=== PATIENT | male | born 1980 | race Caucasian/White ===

== ENCOUNTER 2019-11-23 00:56 | Emergency (ER) | payer OTHER ==
[2019-11-23 01:06] VITALS: TEMP 97.4
[2019-11-23] MEDS ORDERED: ASPIRIN 81 MG PO STA (01:18)
--- NOTE | 2019-11-23 01:28 | ED ---
Chest Pain HPI - General Chief Complaint: Chest Pain Stated Complaint: L Arm tingling, Cardiac issues Time Seen by Provider: 11/23/19 01:08 Source: patient Mode of arrival: ambulatory Limitations: no limitations - History of Present Illness Initial Comments: 38-year-old male with no significant past medical history previous surgical history of right labrum repair no drug use left long nonsmoker with no family history of coronary artery disease--patient states that this evening at approximately 12AM he was lying in bed when he felt the sensation of tingling in his left arm. Denies headache, loss of sensation or weakness. States he then felt left sided chest pressure and SOB. Patient states at one point it felt like someone had this thumb sticking into his left arm. Patient states the chest pressure increased when ambulating around the room, but ceased after 3 minutes and did not return. Patient states the tingling he felt in his left arm when away shortly after but stuck around longer than the chest pressure/SOB. Patient states that all of the symptoms have resolved. He did call EMS during active symptoms and has EKG obtained, they recommended evaluation. Patient then had drive him to the ER. Patient has no additional complaints. Denies jaw pain, thoracic back pain, nausea, vomiting, abdominal pain. Patient has a very active physique. - Related Data Home Medications Medication Instructions Recorded Confirmed No Known Home Medications 11/23/19 11/23/19 Allergies Allergy/AdvReac Type Severity Reaction Status Date / Time No Known Allergies Allergy Verified 11/23/19 01:06 Review of Systems ROS Statement: Those systems with pertinent positive or pertinent negative responses have been documented in the HPI. ROS Other: All systems not noted in ROS Statement are negative. EKG Findings - EKG Comments: EKG Findings:: Ventricular rate 56 bpm, IN interval 194 ms, QRS duration 118 ms, QT/QTC 410/395 ms. This is sinus bradycardia there is no noted ST elevation or depression. Past Medical History Past Medical History: No Reported History History of Any Multi-Drug Resistant Organisms: None Reported Past Surgical History: Adenoidectomy, Orthopedic Surgery, Tonsillectomy Additional Past Surgical History / Comment(s): right carmichael Past Psychological History: No Psychological Hx Reported Smoking Status: Never smoker Past Alcohol Use History: Rare Past Drug Use History: None Reported General Exam - General Exam Comments Initial Comments: General: The patient is awake and alert, in no distress, no diaphoresis Eye: +3 mm pupils are equal, round and reactive to light, extra-ocular movements are intact. No nystagmus. There is normal conjunctiva bilaterally. No signs of icterus. Ears, nose, mouth and throat: There are moist mucous membranes and no oral lesions. Neck: The neck is supple, there is no tenderness or JVD. Cardiovascular: There is a regular rate and rhythm. No murmur, rub or gallop is appreciated. Respiratory: Lungs are clear to auscultation, respirations are non-labored, breath sounds are equal. No wheezes, stridor, rales, or rhonchi. Gastrointestinal: Soft, non-distended, non-tender abdomen without masses or organomegaly noted. There is no rebound or guarding present. Musculoskeletal: Normal ROM, no tenderness. Strength 5/5. Sensation intact. Radial and DP pulses equal bilaterally 2+. Neurological: A&O x 3. CN II-XII intact, There are no obvious motor or sensory deficits. Coordination appears grossly intact. Speech is normal. Skin: Skin is warm and dry and no rashes or lesions are noted. No LE edema. Psychiatric: Cooperative, appropriate mood & affect, normal judgment. Limitations: no limitations Course Vital Signs 11/23/19 11/23/19 00:59 02:00 Temperature 97.4 F L 97.4 F L Pulse Rate 54 L 57 L Respiratory 16 17 Rate Blood Pressure 131/67 128/81 O2 Sat by Pulse 100 100 Oximetry - Reevaluation(s) Reevaluation #1: 11/23/19 01:32 Right arm BP 126/79 Left arm BP 123/77 Reevaluation #2: Signed patient out pending--2nd troponin with Dr. Michelle who will make the ul timate disposition pending that lab. Patient updated. 11/23/19 02:55 Disposition Clinical Impression: Arm paresthesia, left, Chest pain Disposition: HOME SELF-CARE Condition: Good Instructions (If sedation given, give patient instructions): Chest Pain (ED) Additional Instructions: Please use medication as discussed. Please follow-up with family doctor in the next 2 days, recommend outpatient stress testing. Please return to emergency room if the symptoms increase or worsen or for any other concerns. Is patient prescribed a controlled substance at d/c from ED?: No Referrals: Tavo Patricia MD [Primary Care Provider] - 1-2 days
[2019-11-23 01:31] LABS: Basophils % (A) 0 %; Eosinophils # (A) 0.1 k/uL (0-0.7); Eosinophils % (A) 2 %; HCT 42.4 % (39.0-53.0); HGB 14.6 gm/dL (13.0-17.5); Lymphocytes # (A) 2.2 k/uL (1.0-4.8); Lymphocytes % (A) 37 %; MCH 31.3 pg (25.0-35.0); MCHC 34.4 g/dL (31.0-37.0); MCV 90.8 fL (80.0-100.0); Mean Platelet Volume 7.9; Monocytes # (A) 0.4 k/uL (0-1.0); Monocytes % (A) 7 %; Neutrophils # (A) 3.1 k/uL (1.3-7.7); Neutrophils % (A) 52 %; Platelet Count 175 k/uL (150-450); RBC 4.67 m/uL (4.30-5.90); RDW 11.9 % (11.5-15.5)
--- NOTE | 2019-11-23 01:37 | XR ---
EXAMINATION TYPE: XR chest 2V DATE OF EXAM: 11/23/2019 COMPARISON: NONE HISTORY: Chest pain TECHNIQUE: FINDINGS: Heart and mediastinum are normal. Lungs are clear. Diaphragm is normal. Bony thorax appears normal. IMPRESSION: Normal chest.
[2019-11-23 01:42] LABS: D-Dimer 0.55 mg/L FEU (<0.60); INR 1.1 (<1.2); Partial Thromboplastin Time 22.6 sec (22.0-30.0); Prothrombin Time 10.8 sec (9.0-12.0)
[2019-11-23 02:01] VITALS: RESP 17
[2019-11-23 02:18] LABS: ALT 24 U/L (4-49); AST 49 U/L (17-59); African American GFR (CKD) >90 (>60 ml/min/1.73 sqM); Albumin 4.7 g/dL (3.5-5.0); Alkaline Phosphatase 42 U/L (38-126); Anion Gap 10 mmol/L; Blood Urea Nitrogen 26 mg/dL (9-20); Calcium 9.4 mg/dL (8.4-10.2); Carbon Dioxide 24 mmol/L (22-30); Chloride 103 mmol/L (98-107); Glucose 86 mg/dL (74-99); Magnesium 2.2 mg/dL (1.6-2.3); Non-African American GFR(CKD) 86 (>60 ml/min/1.73 sqM); Potassium 4.1 mmol/L (3.5-5.1); Sodium 137 mmol/L (137-145); Total Bilirubin 0.7 mg/dL (0.2-1.3); Total Protein 7.4 g/dL (6.3-8.2)
--- NOTE | 2019-11-23 02:43 | CT ---
EXAMINATION TYPE: CT angio thor/abd pel aorta DATE OF EXAM: 11/23/2019 COMPARISON: None HISTORY: pain CT DLP: 1832.4 mGycm Automated exposure control for dose reduction was used. Images were obtained from the thoracic inlet to the subtrochanteric femurs without and with IV contra st. CONTRAST: Performed with IV Contrast, patient injected with 100 mL of Isovue 370. There are 3-D post processed images. There is normal branching pattern of the great vessels at the aortic arch. Thoracic aorta has normal size and contour. There is no aneurysm or dissection. Heart size is normal. There is no mediastinal a denopathy. There are no hilar masses. The lungs are clear of infiltrate. Liver spleen pancreas gallbladder appear normal. Bile ducts are not dilated. There is no adrenal mass . Kidneys show satisfactory contrast opacification. There is no hydronephrosis. Ureters are not dilat ed. There is no retroperitoneal adenopathy. Bladder distends smoothly. There is bilateral wide patency of the iliac and femoral arteries. The abdominal aorta appears normal . There is no aneurysm or dissection. There is wide patency of the celiac artery and superior mesente oscar artery and both renal arteries. There is no evidence of hemodynamic stenosis. There is no evidenc e of arterial dissection. There is no mesenteric edema. There is no ascites or free air. There is no bowel obstruction. There i s no sign of thickened appendix. The thoracic and lumbar spine appear intact. There is no compression fracture. Bony pelvis is intact. IMPRESSION: Negative CT angiogram of the chest abdomen pelvis.
[2019-11-23 03:21] VITALS: BP 129/74; PULSE 67
== END 2019-11-23 04:14 | disposition home or self-care (01) ==
LOC: EC 00:56
DX: R07.89 Other chest pain (principal); R20.2 Paresthesia of skin; R06.02 Shortness of breath
CPT/HCPCS: 36415; 93005; 85379; 80053; 83735; 84484; 85025; 85610; 85730; 71046; 71275; 74174; 99285; Q9967

== ENCOUNTER → 2023-12-16 | Outpatient (CLI) | payer OTHER ==
[2023-12-16 10:58] LABS: BUN/Creat Ratio 15.43 Ratio (12.00-20.00); Blood Urea Nitrogen 21.6 mg/dL (9.0-27.0); Chloride 105 mmol/L (96-109); Glucose 67 mg/dL (70-110); Potassium 4.8 mmol/L (3.5-5.5); Sodium 141 mmol/L (135-145)
[2023-12-16 10:59] LABS: ALT 39 U/L (10-49); AST 41 U/L (14-35); Albumin 4.8 g/dL (3.8-4.9); Albumin/Globulin Ratio 2.18 Ratio (1.60-3.17); Alkaline Phosphatase 51 U/L (41-126); Calcium 9.7 mg/dL (8.7-10.3); Carbon Dioxide 26.8 mmol/L (21.6-31.8); Globulin 2.2 g/dL (1.6-3.3); Total Bilirubin 0.4 mg/dL (0.3-1.2)
[2023-12-16 11:53] LABS: Appearance,Urine Clear (Clear); Bilirubin,Urine Negative (Negative); Blood,Urine Negative (Negative); Color,Urine Yellow (Yellow); Ketones,Urine Negative (Negative); Nitrite,Urine Negative (Negative); Specific Gravity,Urine 1.014 (1.001-1.030); Urobilinogen,Urine 0.2 E.U./DL
== END | disposition home or self-care (01) ==
LOC: LABWHC1 07:44
PROVIDERS: ATTEND Family Medicine
DX: N28.9 Disorder of kidney and ureter, unspecified (principal)
CPT/HCPCS: 36415; 80053; 81003